=== PATIENT | female | born 1930 | race Caucasian/White ===

== ENCOUNTER 2016-12-14 10:55 | Emergency (ER) | payer OTHER, BC ==
[~2016-12-14] VITALS: Ht 157.5 cm; Wt 51.0 kg
[2016-12-14 11:28] LABS: BASOPHIL % 0.7 % (0-2); PLATELET COUNT 171 x10^3mcL (130-400); RED CELL DISTRIBUTION WIDTH 14.2 % (11.5-14.5)
[2016-12-14 11:43] LABS: CALCIUM 9.1 mg/dL (8.5-10.1); CARBON DIOXIDE 33.9 mmol/L (21-32); CHLORIDE SERUM 100 mmol/L (98-107); GLUCOSE SERUM 135 mg/dL (74-106); POTASSIUM SERUM 4.4 mmol/L (3.5-5.1); SODIUM SERUM 138 mmol/L (136-145)
[2016-12-14 11:55] LABS: ALKALINE PHOSPHATASE 106 U/L (46-116); ALT/SGPT 28 U/L (14-59); AST/SGOT 26 U/L (15-37); BILIRUBIN TOTAL 0.5 mg/dL (0.20-1.00); T4(THYROXINE) 9.2 ug/dL (4.7-13.3); TOTAL PROTEIN, SERUM 7.4 g/dL (6.4-8.2)
[2016-12-14 12:06] LABS: HDL CHOLESTEROL 91 mg/dL (40-60)
[2016-12-14 14:20] VITALS: BP 163/85
== END 2016-12-14 14:20 | disposition home or self-care (01) ==
LOC: ED 10:55
PROVIDERS: Emergency Medicine
DX: R04.0 Epistaxis (principal); I10 Essential (primary) hypertension; E78.00 Pure hypercholesterolemia, unspecified
CPT/HCPCS: 36415; 83880; J2270

== ENCOUNTER 2019-07-01 16:51 | Emergency (ER) | payer OTHER, BC ==
[~2019-07-01] VITALS: Ht 157.5 cm; Wt 49.4 kg
[2019-07-01 17:19] VITALS: Ht 157.5 cm; Wt 49.4 kg
[2019-07-01 19:22] VITALS: BP 144/86
== END 2019-07-01 19:22 | disposition home or self-care (01) ==
LOC: ED 16:51
DX: R04.0 Epistaxis (principal); J34.89 Other specified disorders of nose and nasal sinuses